=== PATIENT | male | born 1980 | race Two or more races ===

== ENCOUNTER 2018-09-05 21:44 | Emergency (ER) | payer MEDICAID ==
[~2018-09-05] VITALS: Ht 185.4 cm; Wt 118.0 kg
[2018-09-06 00:41] LABS: BASOPHILS % 1.4 % (0.0-2.0); HEMATOCRIT. 44.9 % (42.0-52.0); HEMOGLOBIN. 14.2 g/dL (14.0-18.0); LYMPHOCYTES % 32.1 % (20.0-50.0); MEAN CORPUSCULAR HEMOGLOBIN 21.6 pg (28.0-32.0); MEAN CORPUSCULAR VOLUME 68.2 fL (80.0-94.0); MEAN PLATELET VOLUME 7.7 fl (7.4-10.4); MONOCYTES % 5.5 % (2.0-8.0); PLATELET 273 x1000/uL (130-400); RED BLOOD CELL COUNT 6.58 mill/uL (4.7-6.1); RED CELL DISTRIBUTION WIDTH 16.2 % (11.6-14.6)
[2018-09-06 00:49] LABS: CHLORIDE 107 mEq/L (98-107)
[2018-09-06 01:18] LABS: PLATELET ESTIMATE NORMAL
[2018-09-06 01:25] VITALS: BP 139/83
== END 2018-09-06 01:34 | disposition home or self-care (01) ==
LOC: ER 21:44
DX: M25.542 Pain in joints of left hand (principal); M25.541 Pain in joints of right hand; F12.10 Cannabis abuse, uncomplicated
CPT/HCPCS: 36415; 80048; 99283

== ENCOUNTER 2018-12-25 06:46 | Emergency (ER) | payer MEDICAID ==
[~2018-12-25] VITALS: Ht 190.5 cm; Wt 118.0 kg
[2018-12-25] MEDS ORDERED: IBUPROFEN 600MG TABLET PO ONE (07:45)
[2018-12-25 07:51] VITALS: BP 127/72
== END 2018-12-25 07:53 | disposition home or self-care (01) ==
LOC: ER 06:46
DX: M77.9 Enthesopathy, unspecified (principal); I10 Essential (primary) hypertension; F12.10 Cannabis abuse, uncomplicated; F17.210 Nicotine dependence, cigarettes, uncomplicated
CPT/HCPCS: 99282

== ENCOUNTER 2020-02-23 07:40 | Emergency (ER) | payer MEDICAID ==
[~2020-02-23] VITALS: Ht 185.4 cm; Wt 122.0 kg
[2020-02-23 07:42] VITALS: BP 148/103
[2020-02-23] MEDS ORDERED: CEFTRIAXONE SODIUM 250 MG/VIAL IM ONE (08:15)
[2020-02-29 04:07] LABS: NEISSERIA GONORRHOEAE NAA Positive (Negative)
== END 2020-02-23 09:19 | disposition home or self-care (01) ==
LOC: ER 07:44
DX: A54.09 Other gonococcal infection of lower genitourinary tract (principal); A56.2 Chlamydial infection of genitourinary tract, unspecified; I10 Essential (primary) hypertension
CPT/HCPCS: 87491; 87591; 96372; 99283; J0696

== ENCOUNTER 2020-11-24 00:17 | Emergency (ER) | payer MEDICAID ==
[~2020-11-24] VITALS: Ht 185.4 cm; Wt 124.0 kg
[~2020-11-24 00:17] MED LIST: IBUP-2029 MT
[2020-11-24] MEDS ORDERED: FLUORESCEIN SODIUM 1MG/STRIP BOTHEYE ONE (01:00)
[2020-11-24] MEDS ORDERED: TETRACAINE 0.5% OPHTH DROPS 4ML BOTHEYE ONE (01:00)
[2020-11-24] MEDS: SODIUM CHLORIDE 0.9% IRRIG SOLUTION 1000ML IR NR ×2 (01:30→02:06)
[2020-11-24] MEDS ORDERED: PRED5DRO22 EACHEYE (02:17)
[2020-11-24] MEDS ORDERED: OFLO5DRO3 EACHEYE (02:17)
[2020-11-24 02:25] VITALS: BP 179/116
== END 2020-11-24 02:25 | disposition home or self-care (01) ==
LOC: ER 00:17
DX: S05.02XA Injury of conjunctiva and corneal abrasion without foreign body, left eye, initial encounter (principal); S05.01XA Injury of conjunctiva and corneal abrasion without foreign body, right eye, initial encounter; H16.293 Other keratoconjunctivitis, bilateral; I10 Essential (primary) hypertension; F12.10 Cannabis abuse, uncomplicated; Y08.89XA Assault by other specified means, initial encounter; Y93.89 Activity, other specified; Y92.89 Other specified places as the place of occurrence of the external cause
CPT/HCPCS: 99283